=== PATIENT | male | born 1975 | race Caucasian/White ===

== ENCOUNTER → 2020-04-27 | Outpatient (CLI) | payer BC ==
--- NOTE | 2020-04-27 14:13 | US ---
EXAMINATION TYPE: US venous doppler duplex LE BI DATE OF EXAM: 04/27/2020 1:05 PM COMPARISON: NONE CLINICAL HISTORY: R60.0 Localized edema. SIDE PERFORMED: Bilateral TECHNIQUE: The lower extremity deep venous system is examined utilizing real time linear array sonog karla with graded compression, doppler sonography and color-flow sonography. VESSELS IMAGED: Common Femoral Vein Deep Femoral Vein Greater Saphenous Vein * Femoral Vein Popliteal Vein Small Saphenous Vein * Proximal Calf Veins (* superficial vessels) There is normal flow, compressibility, vascular waveforms. Right Leg: Negative for DVT Left Leg: Negative for DVT IMPRESSION: No evident deep venous thrombosis at or above the knees
--- NOTE | 2020-04-27 15:12 | XR ---
Right leg HISTORY: Pain, trauma Frontal and lateral views of the right leg submitted on 5 images Multiple ossific densities are present about the ankle which appear to be well-corticated. Soft tissu e swelling is present. Probable vascular calcifications are present within the soft tissues. Small os sific densities at the level of the tibial tuberosity are not felt likely to be acute. No evident kne e joint effusion. No periostitis to suggest osteomyelitis. IMPRESSION: No acute fracture or dislocation is suspected. Ossific densities about the ankle may be d ue to remote trauma, correlate for appropriate history. Relate for cellulitis, edema.
== END | disposition home or self-care (01) ==
LOC: RADUSWWP 12:36
PROVIDERS: ATTEND Family Medicine
DX: L03.115 Cellulitis of right lower limb (principal); R60.0 Localized edema
CPT/HCPCS: 93970

== ENCOUNTER 2020-09-15 02:33 | Observation (INO) | payer BC ==
--- NOTE | 2020-09-15 02:45 | ED ---
Chest Pain HPI - General Chief Complaint: Chest Pain Stated Complaint: Chest Pain Time Seen by Provider: 09/15/20 02:39 Source: patient, RN notes reviewed, old records reviewed Mode of arrival: ambulatory Limitations: no limitations - History of Present Illness Initial Comments: This is a 45-year-old male DF for evaluation of chest pain today. Chest pain just a prior NH history. No fevers no shortness of breath no diaphoresis symptoms since earlier in the day about 12 hours now. Patient states all prior needs for stent happened about the same way. No recent cardiac evaluation. No recent travel history sick contacts. No fevers MD Complaint: chest pain -: hour(s) Onset: during rest Pain Location: substernal, left chest Pain Radiation: LUE Severity: moderate Severity scale (1-10): 4 Quality: tightness, heaviness Consistency: constant Improves With: nothing Worsens With: nothing Context: other (Increased stress) Anginal Symptoms: sense of impending doom Other Symptoms: palpitations Treatments Prior to Arrival: none - Related Data Allergies Allergy/AdvReac Type Severity Reaction Status Date / Time No Known Allergies Allergy Verified 09/15/20 02:40 Review of Systems ROS Statement: Those systems with pertinent positive or pertinent negative responses have been documented in the HPI. ROS Other: All systems not noted in ROS Statement are negative. EKG Findings - EKG Comments: EKG Findings:: EKG is sinus rhythm 79, OR 146 QRS 78 QTc 449 Past Medical History Past Medical History: Hyperlipidemia, Myocardial Infarction ([place]) History of Any Multi-Drug Resistant Organisms: None Reported Past Surgical History: Heart Catheterization With Stent, Orthopedic Surgery Past Psychological History: Anxiety Smoking Status: Current every day smoker Past Alcohol Use History: Occasional Past Drug Use History: Marijuana General Exam Limitations: no limitations General appearance: alert, in no apparent distress, anxious Head exam: Present: atraumatic, normocephalic, normal inspection Eye exam: Present: normal appearance, PERRL, EOMI. Absent: scleral icterus, conjunctival injection, periorbital swelling ENT exam: Present: normal exam, mucous membranes moist Neck exam: Present: normal inspection. Absent: tenderness, meningismus, lymphadenopathy Respiratory exam: Present: normal lung sounds bilaterally. Absent: respiratory distress, wheezes, rales, rhonchi, stridor Cardiovascular Exam: Present: regular rate, normal rhythm, normal heart sounds. Absent: systolic murmur, diastolic murmur, rubs, gallop, clicks GI/Abdominal exam: Present: soft, normal bowel sounds. Absent: distended, tenderness, guarding, rebound, rigid Extremities exam: Present: normal inspection, full ROM, normal capillary refill. Absent: tenderness, pedal edema, joint swelling, calf tenderness Back exam: Present: normal inspection Neurological exam: Present: alert, oriented X3, CN II-XII intact Psychiatric exam: Present: normal affect, normal mood Skin exam: Present: warm, dry, intact, normal color. Absent: rash Course Vital Signs 09/15/20 02:38 Temperature 98.5 F Pulse Rate 83 Respiratory 18 Rate Blood Pressure 140/95 O2 Sat by Pulse 98 Oximetry - Reevaluation(s) Reevaluation #1: 09/15/20 05:24 Medical record is reviewed Reevaluation #2: 09/15/20 05:24 No prior troponin here and troponin is mildly bumped Reevaluation #3: 09/15/20 05:24 Patient states the chest pain feels just like prior MIs with stent Reevaluation #4: 09/15/20 05:24 Spoke patient regarding findings, questions answered - Consultations Consultation #1: spoke w [facility] Ok for admission Chest Pain MDM - MDM 45 male DF for evaluation. Patient will be admitted for acute coronary syndrome, unstable angina chest pain with history of NH and stent placement Critical Care Time Critical Care Time: Yes Total Critical Care Time: 31 Disposition Clinical Impression: Chest pain, Unstable angina pectoris Disposition: ADMITTED IP TO THIS HOSP Condition: Undetermined Instructions (If sedation given, give patient instructions): Chest Pain (ED) Referrals: Lewis Aparicio MD [Primary Care Provider] - 1-2 days
[2020-09-15] MEDS ORDERED: LORazepam 2 MG/ML INJ IV STA (03:28)
--- NOTE | 2020-09-15 03:59 | XR ---
EXAM: XR Chest, 2 Views CLINICAL HISTORY: Chest Pain TECHNIQUE: Frontal and lateral views of the chest. COMPARISON: No relevant prior studies available. FINDINGS: Lungs: No significant abnormality. No consolidation. Pleural space: No significant abnormality. No pneumothorax. Heart: No significant abnormality. No cardiomegaly. Mediastinum: No significant abnormality. Bones/joints: No acute osseous abnormality. IMPRESSION: No acute cardiopulmonary process.
[2020-09-15 04:02] LABS: Basophils # (A) 0.1 k/uL (0-0.2); Basophils % (A) 1 %; Eosinophils # (A) 0.5 k/uL (0-0.7); Eosinophils % (A) 4 %; HCT 48.8 % (39.0-53.0); HGB 16.4 gm/dL (13.0-17.5); Lymphocytes # (A) 2.5 k/uL (1.0-4.8); Lymphocytes % (A) 20 %; MCH 30.8 pg (25.0-35.0); MCHC 33.7 g/dL (31.0-37.0); MCV 91.2 fL (80.0-100.0); Mean Platelet Volume 7.2; Monocytes # (A) 0.5 k/uL (0-1.0); Monocytes % (A) 4 %; Neutrophils # (A) 8.7 k/uL (1.3-7.7); Neutrophils % (A) 71 %; Platelet Count 267 k/uL (150-450); RBC 5.35 m/uL (4.30-5.90); RDW 12.9 % (11.5-15.5); WBC 12.4 k/uL (3.8-10.6)
[2020-09-15 04:27] LABS: INR 0.9 (<1.2); Partial Thromboplastin Time 24.9 sec (22.0-30.0); Prothrombin Time 9.7 sec (9.0-12.0)
[2020-09-15 04:43] LABS: ALT 21 U/L (4-49); AST 30 U/L (17-59); African American GFR (CKD) >90 (>60 ml/min/1.73 sqM); Albumin 4.2 g/dL (3.5-5.0); Alkaline Phosphatase 68 U/L (38-126); Anion Gap 7 mmol/L; Blood Urea Nitrogen 10 mg/dL (9-20); Calcium 9.4 mg/dL (8.4-10.2); Carbon Dioxide 23 mmol/L (22-30); Chloride 106 mmol/L (98-107); Creatine Kinase 119 U/L (55-170); Glucose 88 mg/dL (74-99); Lipase 131 U/L (23-300); Magnesium 1.9 mg/dL (1.6-2.3); Non-African American GFR(CKD) >90 (>60 ml/min/1.73 sqM); Potassium 4.2 mmol/L (3.5-5.1); Sodium 136 mmol/L (137-145); Total Bilirubin 0.8 mg/dL (0.2-1.3); Total Protein 6.8 g/dL (6.3-8.2)
[2020-09-15] MEDS ORDERED: ASPIRIN 81 MG PO STA (05:26)
[2020-09-15] MEDS ORDERED: NITROGLYCERIN SL TABS 0.4 MG TAB SUBLINGUAL PRN (05:26)
[2020-09-15] MEDS ORDERED: AMINOPHYLLINE 500 MG/20 ML VIAL IV PRN (10:09)
[2020-09-15] MEDS ORDERED: CAFFEINE CITRATE 60 MG/3 ML VIAL IV PRN (10:09)
[2020-09-15] MEDS ORDERED: REGADENOSON 0.4 MG/5 ML SYRINGE IV PRN (10:09)
[2020-09-15] MEDS: lisinopriL 5 MG TAB PO SCH (10:16)
[2020-09-15] MEDS: SERTRALINE 50 MG TAB PO SCH (10:16)
[2020-09-15] MEDS: carvediloL 3.125 MG TAB PO SCH ×2 (10:16→17:48)
[2020-09-15] MEDS: SODIUM CHLORIDE 0.9% 1,000 ML IV SCH (10:17)
--- NOTE | 2020-09-15 10:17 | P.HPIM ---
History of Present Illness H&P Date: 09/15/20 Chief Complaint: Anxiety attack This is a 45-year-old male with past medical history noted below significant for coronary artery disease with prior stent placement most recently in May 2019 that presented to the emergency room with what appeared to be an anxiety attack. Patient was seen and evaluated by me in the ER. 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 Patient said that he got out of the meeting and was concerned that he may be having a heart attack. He denies any venita chest pain. No shortness of breath or palpitation. He said that dose where his symptoms previously when he had a heart attack. He reported being hospitalized and said [facility] last year and having heart cath with stent placement. He also said that he had a cardiac stress test in May of this year that was reported negative. Patient continues to smoke 1 pack per day. He reports taking his medications as prescribed. He was taking off of Plavix recently. Review of Systems Review of system: 14 points review of systems were obtained and were negative except to what were mentioned in the HPI. Past Medical History Past Medical History: Hyperlipidemia, Myocardial Infarction ([place]) History of Any Multi-Drug Resistant Organisms: None Reported Past Surgical History: Heart Catheterization With Stent, Orthopedic Surgery Past Psychological History: Anxiety Smoking Status: Current every day smoker Past Alcohol Use History: Occasional Past Drug Use History: Marijuana Medications and Allergies Home Medications Medication Instructions Recorded Confirmed Type Nitroglycerin Sl Tabs [Nitrostat] 0.4 mg SUBLINGUAL Q5M PRN 09/15/20 09/15/20 History Sertraline [Zoloft] 50 mg PO DAILY 09/15/20 09/15/20 History carvediloL [Coreg] 3.125 mg PO BID 09/15/20 09/15/20 History lisinopriL [Zestril] 5 mg PO DAILY 09/15/20 09/15/20 History traZODone HCL [Desyrel] 100 mg PO HS 09/15/20 09/15/20 History Allergies Allergy/AdvReac Type Severity Reaction Status Date / Time No Known Allergies Allergy Verified 09/15/20 07:01 Physical Exam Vitals: Vital Signs Temp Pulse Resp BP Pulse Ox 09/15/20 07:39 98.0 F 70 16 120/66 98 09/15/20 07:00 66 16 121/72 96 09/15/20 02:38 98.5 F 83 18 140/95 98 Intake and Output 09/14/20 09/15/20 09/15/20 22:59 06:59 14:59 Other: Weight 88.904 kg General: The patient is awake and alert, in no distress Eye: there is normal conjunctiva bilaterally. Neck: The neck is supple, there is no JVD. Cardiovascular: Normal S1-S2, no S3-S4, no murmurs. Respiratory: Lungs clear to auscultation bilaterally Gastrointestinal: Abdomen is soft, nontender Musculoskeletal: There is no pedal edema. Neurological:. Speech is normal. Skin: Skin is warm and dry Results CBC & Chem 7: 09/15/20 03:39 09/15/20 03:39 Labs: Abnormal Lab Results - Last 24 Hours (Table) 09/15/20 09/15/20 Range/Units 03:39 03:39 WBC 12.4 H (3.8-10.6) k/uL Neutrophils # 8.7 H (1.3-7.7) k/uL Sodium 136 L (137-145) mmol/L Assessment and Plan Assessment: 1. Chest tightness, ACS ruled out. Troponin negative 2 sets. Twelve-lead EKG in the ER with no acute ischemic changes. Cardiology consulted for further evaluation. 2. Coronary artery disease with prior stent placement: Continue optimal medical management 3. Tobacco abuse, counseled extensively to quit. Patient refused nicotine patch during this admission 4. Generalized anxiety disorder 5. DVT prophylaxis with subcu Lovenox
--- NOTE | 2020-09-15 11:07 | ECHOF ---
Referral Reason: MEASUREMENTS -------- HEIGHT: 177.8 cm WEIGHT: 88.9 kg BP: 121/22 RVIDd: 3.6 cm (< 3.3) IVSd: 1.5 cm (0.6 - 1.1) LVIDd: 4.2 cm (3.9 - 5.3) LVPWd: 1.4 cm (0.6 - 1.1) IVSs: 1.9 cm LVIDs: 2.7 cm LVPWs: 1.7 cm LAESV Index (A-L): 21.42 ml/m Ao Diam: 3.1 cm (2.0 - 3.7) AV Cusp: 1.9 cm (1.5 - 2.6) LA Diam: 3.3 cm (2.7 - 3.8) MV EXCURSION: 18.742 mm (> 18.000) MV EF SLOPE: 99 mm/s (70 - 150) EPSS: 0.6 cm MV E Magdiel: 0.66 m/s MV DecT: 282 ms MV A Magdiel: 1.06 m/s MV E/A Ratio: 0.62 RAP: 5.00 mmHg RVSP: 10.49 mmHg TAPSE: 25.81 mm FINDINGS -------- This was a technically good study. The left ventricular size is normal. There is moderate concentric left ventricular hypertrophy. O verall left ventricular systolic function is mildly impaired with, an EF between 45 - 50 %. The javy stolic filling pattern is normal for the age of the patient 12.54. Basal inferior LV wall motion is hypokinetic. Basal inferoseptal LV wall motion is hypokinetic. The right ventricle is mildly enlarged. The right ventricular systolic function is normal. The left atrial size is normal. Normal LA size by volume 22+/-6 ml/m2. The right atrial size is normal. Aortic valve is trileaflet and is mildly thickened. There is mild aortic valve sclerosis. The mitral valve is normal. Mild mitral regurgitation is present. The tricuspid valve appears structurally normal. Mild tricuspid regurgitation present. Right vent ricular systolic pressure is normal at < 35 mmHg. There is no pulmonic regurgitation present. The aortic root size is normal. Normal inferior vena cava with normal inspiratory collapse consistent with estimated right atrial pre ssure of 5 mmHg. There is no pericardial effusion. CONCLUSIONS -------- 1. The left ventricular size is normal. 2. There is moderate concentric left ventricular hypertrophy. 3. Overall left ventricular systolic function is mildly impaired with, an EF between 45 - 50 %. 4. The diastolic filling pattern is normal for the age of the patient 12.54 5. Basal inferior LV wall motion is hypokinetic. 6. Basal inferoseptal LV wall motion is hypokinetic. 7. The right ventricle is mildly enlarged. 8. The right ventricular systolic function is normal. 9. Aortic valve is trileaflet and is mildly thickened. 10. There is mild aortic valve sclerosis. 11. Mild mitral regurgitation is present. 12. Mild tricuspid regurgitation present. 13. There is no pericardial effusion. ECONOMIC RESEARCH ANALYST: Fatoumata Don RDCS
[2020-09-15] MEDS: ENOXAPARIN 40 MG/0.4 ML SYRINGE SQ SCH (12:36)
--- NOTE | 2020-09-15 12:37 | P.CRDCN ---
History of Present Illness Consult date: 09/15/20 History of present illness: HISTORY OF PRESENT ILLNESS: This is a 45-year-old male with a past medical history significant for hypertension, hyperlipidemia and coronary artery disease with previous stent placement 4 per patient. Patient follows in the office with Dr. Mckeon. We have been asked to see the patient in consultation for chest pain. Patient examined at the bedside. Patient reports he has a total of 4 stents which he states were placed in 2007, 2009, and 2019. Patient states his last stents were done at [facility]. Patient states yesterday he was at work when he suddenly began to feel like "crap". Patient states he has a very stressful job and when he came home he took a shower and went to lay down. He states he began having chest tightness and pain in his fingers which is how he felt with his previous stents. Patient states he did not feel nauseous or have any vomiting. He denied any shortness of breath. Patient states that he took a nitro at home which did not help. EKG reveals sinus mechanism with PVCs. No signs of acute ischemia. Chest xray negative for acute process Laboratory data: WBC 12.4. Hemoglobin 16.4. Platelet count 267. Sodium 136. Potassium 4.2. BUN 10. Creatinine 0.77. Magnesium 1.9. Troponin negative 3. Current home cardiac medications include lisinopril 5 mg daily and carvedilol 3.125 mg BID. Echocardiogram completed revealed ejection fraction 45-50%, basal inferior and basal inferior septal LV wall hypokinesis, mild mitral regurgitation, and mild tricuspid regurgitation REVIEW OF SYSTEMS: At the time of my exam: CONSTITUTIONAL: Denies fever or chills. HEENT: Denies blurred vision, vision changes, or eye pain. Denies hemoptysis CARDIOVASCULAR: Denies chest pain. Denies orthopnea. Denies PND. Denies palpitations RESPIRATORY: Denies shortness of breath. GASTROINTESTINAL: Denies abdominal pain. Denies nausea or vomiting. HEMATOLOGIC: Denies bleeding disorders. GENITOURINARY: Denies any blood in urine. SKIN: Denies pruitis. Denies rash. PHYSICAL EXAM: VITAL SIGNS: Reviewed. GENERAL: Well-developed in no acute distress. HEENT: Head is normocephalic. Pupils are equal, round. Sclerae anicteric. Mucous membranes of the mouth are moist. Neck supple. No JVD or thyromegaly LUNGS: Respirations even and unlabored. Lungs essentially clear to auscultation bilaterally. HEART: Regular rate and rhythm. S1 and S2 heard. ABDOMEN: Soft. Nondistended. Nontender. EXTREMITIES: Normal range of motion. No clubbing or cyanosis. Peripheral pulses intact. No lower extremity edema NEUROLOGIC: Awake and alert. Oriented x 3. ASSESSMENT: Chest pain, troponins negative 3 Hypertension Hyperlipidemia Coronary artery disease with previous stent placement 4 Anxiety Nicotine dependence PLAN: An acute coronary event has been ruled out Continue current cardiac medications Begin Aspirin 81 mg daily NPO at midnight Patient to undergo Trina scan stress test tomorrow Further recommendations pending patient course Nurse practitioner note has been reviewed by physician. Signing provider agrees with the documented findings, assessment, and plan of care. Past Medical History Past Medical History: Hyperlipidemia, Myocardial Infarction ([place]) History of Any Multi-Drug Resistant Organisms: None Reported Past Surgical History: Heart Catheterization With Stent, Orthopedic Surgery Past Psychological History: Anxiety Smoking Status: Current every day smoker Past Alcohol Use History: Occasional Past Drug Use History: Marijuana Medications and Allergies Home Medications Medication Instructions Recorded Confirmed Type Nitroglycerin Sl Tabs [Nitrostat] 0.4 mg SUBLINGUAL Q5M PRN 09/15/20 09/15/20 History Sertraline [Zoloft] 50 mg PO DAILY 09/15/20 09/15/20 History carvediloL [Coreg] 3.125 mg PO BID 09/15/20 09/15/20 History lisinopriL [Zestril] 5 mg PO DAILY 09/15/20 09/15/20 History traZODone HCL [Desyrel] 100 mg PO HS 09/15/20 09/15/20 History Allergies Allergy/AdvReac Type Severity Reaction Status Date / Time No Known Allergies Allergy Verified 09/15/20 07:01 Physical Exam Vitals: Vital Signs Temp Pulse Resp BP Pulse Ox 09/15/20 12:11 98 17 127/78 98 09/15/20 11:13 17 09/15/20 10:18 98.0 F 80 16 126/83 98 09/15/20 07:39 98.0 F 70 16 120/66 98 09/15/20 07:00 66 16 121/72 96 09/15/20 02:38 98.5 F 83 18 140/95 98 Intake and Output 09/14/20 09/15/20 09/15/20 22:59 06:59 14:59 Other: Weight 88.904 kg Results 09/15/20 03:39 09/15/20 03:39 Cardiac Enzymes 09/15/20 09/15/20 09/15/20 Range/Units 03:39 03:39 07:02 AST 30 (17-59) U/L Troponin I 0.018 0.017 (0.000-0.034) ng/mL 09/15/20 Range/Units 09:48 AST (17-59) U/L Troponin I <0.012 (0.000-0.034) ng/mL Coagulation 09/15/20 Range/Units 03:39 PT 9.7 (9.0-12.0) sec APTT 24.9 (22.0-30.0) sec CBC 09/15/20 Range/Units 03:39 WBC 12.4 H (3.8-10.6) k/uL RBC 5.35 (4.30-5.90) m/uL Hgb 16.4 (13.0-17.5) gm/dL Hct 48.8 (39.0-53.0) % Plt Count 267 (150-450) k/uL Comprehensive Metabolic Panel 09/15/20 Range/Units 03:39 Sodium 136 L (137-145) mmol/L Potassium 4.2 (3.5-5.1) mmol/L Chloride 106 (98-107) mmol/L Carbon Dioxide 23 (22-30) mmol/L BUN 10 (9-20) mg/dL Creatinine 0.77 (0.66-1.25) mg/dL Glucose 88 (74-99) mg/dL Calcium 9.4 (8.4-10.2) mg/dL AST 30 (17-59) U/L ALT 21 (4-49) U/L Alkaline Phosphatase 68 (38-126) U/L Total Protein 6.8 (6.3-8.2) g/dL Albumin 4.2 (3.5-5.0) g/dL Current Medications Generic Name Dose Route Start Last Admin Trade Name Freq PRN Reason Stop Dose Admin Aminophylline 100 mg 09/15/20 10:09 Aminophylline 500 Mg/20 Ml Vial IV 09/15/20 14:10 ONCE PRN Patient Response Aspirin 81 mg 09/16/20 09:00 Aspirin 81 Mg PO DAILY CLIFF Caffeine Citrate 60 mg 09/15/20 10:09 Caffeine Citrate 60 Mg/3 Ml Vial IV 09/15/20 14:10 ONCE PRN Patient Response Carvedilol 3.125 mg 09/15/20 09:00 09/15/20 10:16 Carvedilol 3.125 Mg Tab PO 3.125 mg BID-W/MEALS CLIFF Administration Enoxaparin Sodium 40 mg 09/15/20 10:30 Enoxaparin 40 Mg/0.4 Ml Syringe SQ DAILY CLIFF Sodium Chloride 1,000 mls @ 20 mls/hr 09/15/20 05:30 09/15/20 10:17 Saline 0.9% IV 20 mls/hr .Q24H CLIFF Administration Lisinopril 5 mg 09/15/20 09:00 09/15/20 10:16 Lisinopril 5 Mg Tab PO 5 mg DAILY CLIFF Administration Nitroglycerin 0.4 mg 09/15/20 05:26 Nitroglycerin Sl Tabs 0.4 Mg Tab SUBLINGUAL Q5M PRN Chest Pain Regadenoson 0.4 mg 09/15/20 10:09 Regadenoson 0.4 Mg/5 Ml Syringe IV 09/15/20 14:10 ONCE PRN Per Protocol Sertraline HCl 50 mg 09/15/20 09:00 09/15/20 10:16 Sertraline 50 Mg Tab PO 50 mg DAILY CLIFF Administration Trazodone HCl 100 mg 09/15/20 21:00 Trazodone Hcl 100 Mg Tab PO HS CLIFF Intake and Output 09/14/20 09/15/20 09/15/20 22:59 06:59 14:59 Other: Weight 88.904 kg 09/15/20 03:39 09/15/20 03:39
[2020-09-15] MEDS ORDERED: HYDROcodone/APAP 5-325MG 1 EACH TAB PO PRN (19:36)
[2020-09-15] MEDS ORDERED: traZODone HCL 100 MG TAB PO SCH (21:00)
[2020-09-16] MEDS: SODIUM CHLORIDE 0.9% 1,000 ML IV SCH (05:28)
[2020-09-16 07:45] VITALS: RESP 18
[2020-09-16] MEDS: lisinopriL 5 MG TAB PO SCH (07:45)
[2020-09-16] MEDS: ENOXAPARIN 40 MG/0.4 ML SYRINGE SQ SCH (07:45)
[2020-09-16] MEDS: carvediloL 3.125 MG TAB PO SCH ×2 (07:45→17:14)
[2020-09-16] MEDS: SERTRALINE 50 MG TAB PO SCH (08:03)
[2020-09-16] MEDS ORDERED: ASPIRIN 81 MG PO SCH (09:00)
[2020-09-16] MEDS ORDERED: ASPIRIN 325 MG TAB PO SCH (09:00)
--- NOTE | 2020-09-16 12:16 | P.STRESS ---
- Stress Test Note Stress Test Results/Findings: Exam Performed: NM stress lexiscan cardiolite Exam Date: 09/16/20 Reason for Exam: CP Height: 6 ft Weight: 88.9 kg Protocol: LEXISCAN CARDIOLITE Stage: NA Duration of Exercise: NA Resting Heart Rate: 60 Resting Blood Pressure: 112/73 Maximum Achieved Heart Rate: 102 Maximum Achieved Blood Pressure: 119/74 85% PMHR: 148 100% PMHR: 174 METS: NA Technologist Comment: Stress Test Results/Findings: This is a 45-year-old gentleman with history of previous myocardial infarction was admitted to the hospital with chest pain. Cardiac enzymes are negative. Stress data: Baseline EKG showed sinus rhythm with evidence of old inferior wall CT. Blood pressure at rest is 112/73 with pulse rate of 60. A standard dose of Lexiscan was infused. EKGs taken during and after infusion did not reveal any changes of ischemia. Patient did not experience any chest pain. Final impression: #1. Negative Lexiscan stress test #2. Report on the nuclear images to begin by the radiologist.
--- NOTE | 2020-09-16 12:17 | NM ---
EXAMINATION TYPE: NM stress lexiscan cardiolite DATE OF EXAM: 09/16/2020 COMPARISON: NONE HISTORY: Precordial chest pain TECHNIQUE: After the intravenous administration of 10 mCi Tc 99m Sestamibi - Cardiolite resting SPEC T images acquired 60 minutes post injection. The patient received 0.4mg Lexiscan, 25.5 mCi Tc 99m Sestamibi - Stress images obtained [address] injection FINDINGS: Review of stress and rest SPECT images demonstrates fixed defect involving the inferior wall. There i s decreased perfusion following stress imaging involving the lateral wall as well as portions of the septum. Gated analysis shows normal wall motion with an estimated left ventricular ejection fraction of 58 %. IMPRESSION: Findings as above felt to reflect stress-induced ischemia.
[2020-09-16] MEDS ORDERED: NITROGLYCERIN SL TABS 0.4 MG TAB SUBLINGUAL PRN (13:39)
[2020-09-16] MEDS ORDERED: ALPRAZolam 0.25 MG TAB PO PRN (13:39)
[2020-09-16] MEDS ORDERED: ALPRAZolam 0.5 MG TAB PO PRN (13:39)
[2020-09-16 14:59] LABS: Chol/HDL Ratio 5.16
[2020-09-16 15:48] VITALS: BP 93/55; PULSE 64; TEMP 98.2
--- NOTE | 2020-09-16 16:22 | ECHOS ---
Stress Test Results/Findings: Exam Performed: NM stress lexiscan cardiolite Exam Date: 09/16/20 Reason for Exam: CP Height: 6 ft Weight: 88.9 kg Protocol: LEXISCAN CARDIOLITE Stage: NA Duration of Exercise: NA Resting Heart Rate: 60 Resting Blood Pressure: 112/73 Maximum Achieved Heart Rate: 102 Maximum Achieved Blood Pressure: 119/74 85% PMHR: 148 100% PMHR: 174 METS: NA Technologist Comment: Stress Test Results/Findings: This is a 45-year-old gentleman with history of previous myocardial infarction was admitted to the hospital with chest pain. Cardiac enzymes are negative. Stress data: Baseline EKG showed sinus rhythm with evidence of old inferior wall [place]. Blood pressure at rest is 112/73 with pulse rate of 60. A standard dose of Lexiscan was infused. EKGs taken during and after infusion did not reveal any changes of ischemia. Patient did not experience any chest pain. Final impression: #1. Negative Lexiscan stress test #2. Report on the nuclear images to begin by the radiologist. FRANSIOC
--- NOTE | 2020-09-16 17:13 | P.PN ---
Subjective Progress Note Date: 09/16/20 Patient is doing well today. He denies any chest pain. Objective - Vital Signs Vital signs: Vital Signs Temp 98.2 F 09/16/20 15:00 Pulse 64 09/16/20 15:00 Resp 18 09/16/20 15:00 BP 93/55 09/16/20 15:00 Pulse Ox 96 09/16/20 15:00 Intake & Output 09/15/20 09/16/20 09/16/20 18:59 06:59 18:59 Weight 88.904 kg 88.9 kg Other: Voiding Method Toilet Toilet Toilet # Voids 1 3 3 - Exam General: The patient is awake and alert, in no distress Eye: there is normal conjunctiva bilaterally. Neck: The neck is supple, there is no JVD. Cardiovascular: Normal S1-S2, no S3-S4, no murmurs. Respiratory: Lungs clear to auscultation bilaterally Gastrointestinal: Abdomen is soft, nontender Musculoskeletal: There is no pedal edema. Neurological:. Speech is normal. Skin: Skin is warm and dry - Labs CBC & Chem 7: 09/15/20 03:39 09/15/20 03:39 Labs: Abnormal Lab Results - Last 24 Hours (Table) 09/15/20 Range/Units 03:39 Cholesterol 222 H (0-200) mg/dL LDL Cholesterol, Calc 155.0 H (0.0-131.0) mg/dL Assessment and Plan Assessment: 1. Chest tightness, ACS ruled out. Troponin negative 2 sets. Twelve-lead EKG in the ER with no acute ischemic changes. Cardiology consulted for further eliseo luation. Patient scheduled for cardiac stress test today. 2. Coronary artery disease with prior stent placement: Continue optimal medical management 3. Tobacco abuse, counseled extensively to quit. Patient refused nicotine patch during this admission 4. Generalized anxiety disorder 5. DVT prophylaxis with subcu Lovenox
[2020-09-16] MEDS ORDERED: SODIUM CHLORIDE 0.9% 1,000 ML in EMPTY BAG 1 BAG IV ONE (23:30)
[2020-09-17] MEDS ORDERED: HEPARIN SODIUM,PORCINE 2,500 UNIT in SODIUM CHLORIDE 0.9% 250 ML IRRIGATION PRN (07:00)
[2020-09-17] MEDS ORDERED: ASPIRIN 325 MG TAB PO ONE (07:00)
[2020-09-17] MEDS ORDERED: HEPARIN SODIUM,PORCINE 10,000 UNIT in SODIUM CHLORIDE 0.9% 1,000 ML IRRIGATION PRN (07:00)
[2020-09-17] MEDS ORDERED: ATORVASTATIN 80 MG TAB PO ONE (07:00)
--- NOTE | 2020-09-17 10:16 | P.DS ---
Providers Date of admission: 09/16/20 15:57 Expected date of discharge: 09/17/20 Attending physician: Misty Zelaya MD Consults: 09/15/20 05:26 Consult Physician Urgent Consulting Provider: Joselito Correia Consult Reason/Comments: cp Do you want consulting provider notified?: Yes Primary care physician: Lewis Aparicio MD Hospital Course: Patient left the hospital AMA last night before I get the chance to discuss his cardiac stress test result with him Patient Condition at Discharge: Undetermined Plan - Discharge Summary Discharge Rx Participant: No New Discharge Prescriptions: No Action traZODone HCL [Desyrel] 100 mg PO HS lisinopriL [Zestril] 5 mg PO DAILY carvediloL [Coreg] 3.125 mg PO BID Sertraline [Zoloft] 50 mg PO DAILY Nitroglycerin Sl Tabs [Nitrostat] 0.4 mg SUBLINGUAL Q5M PRN PRN Reason: Chest Pain Discharge Medication List Nitroglycerin Sl Tabs [Nitrostat] 0.4 mg SUBLINGUAL Q5M PRN 09/15/20 [History] Sertraline [Zoloft] 50 mg PO DAILY 09/15/20 [History] carvediloL [Coreg] 3.125 mg PO BID 09/15/20 [History] lisinopriL [Zestril] 5 mg PO DAILY 09/15/20 [History] traZODone HCL [Desyrel] 100 mg PO HS 09/15/20 [History] Follow up Appointment(s)/Referral(s): Lewis Aparicio MD [Primary Care Provider] - 1-2 days Patient Instructions/Handouts: Chest Pain (ED) Discharge Disposition: Left Against Medical Advice
== END 2020-09-16 18:33 | disposition left against medical advice (07) ==
LOC: EC 02:33 → SUPCPDRO 02:33 → 1SOBS 05:26 → 6NMEDSUR 13:45 → OBSVTOIN 09-16 15:57 → INTOOBSV 09-16 15:57 → UNDODISIN 09-16 18:33
PROVIDERS: ADMIT Internal Medicine; ATTEND Internal Medicine
DX: R07.89 Other chest pain (principal); Z53.29 Procedure and treatment not carried out because of patient's decision for other reasons; I25.10 Atherosclerotic heart disease of native coronary artery without angina pectoris; R00.2 Palpitations; I25.2 Old myocardial infarction; I10 Essential (primary) hypertension; E78.5 Hyperlipidemia, unspecified; F41.1 Generalized anxiety disorder; M79.642 Pain in left hand; M79.641 Pain in right hand; M25.522 Pain in left elbow; M25.521 Pain in right elbow; F17.210 Nicotine dependence, cigarettes, uncomplicated; Z95.5 Presence of coronary angioplasty implant and graft; Z79.899 Other long term (current) drug therapy
CPT/HCPCS: 96372 ×2; 93005 ×2; 96374; 99291; 36415; 93017; 93306; 83880; 80061; 80053; 82550; 83690; 83735; 84484; 85025; 85610; 85730; 87635; 71046; 78452; G0378 ×3; A9500; J2060; J1650 ×2; J2785